=== PATIENT | female | born 1935 | race Caucasian/White ===

== ENCOUNTER 2025-02-01 07:54 | Day surgery (SDC) | payer MEDICARE, BC, MEDICAID ==
[~2025-02-01] VITALS: Ht 162.6 cm; Wt 70.4 kg
[2025-02-01] MEDS ORDERED: BUSP10TA3 PO (08:18)
[2025-02-01] MEDS ORDERED: WARF5TAB9 PO (08:18)
[2025-02-01] MEDS ORDERED: WARF-55 PO (08:18)
[2025-02-01] MEDS ORDERED: VENL150C58 PO (08:18)
[2025-02-01] MEDS ORDERED: DILT-94 PO (08:18)
[2025-02-01] MEDS ORDERED: OMEP20CA16 PO (08:18)
[2025-02-01 08:40] VITALS: BP 142/75; PULSE 132; RESP 17
[2025-02-01] MEDS ORDERED: propofol 10mg/ml 20ml vial IV ONE (09:17)
[2025-02-01 09:40] VITALS: BP 135/82; PULSE 114; RESP 21; O2SAT 99
[2025-02-01 09:50] VITALS: BP 133/66; PULSE 110; RESP 20; O2SAT 97
[2025-02-01 10:00] VITALS: BP 137/74; PULSE 118; RESP 21; O2SAT 97
[2025-02-01 10:10] VITALS: BP 138/80; PULSE 111; RESP 15; O2SAT 97
== END 2025-02-01 10:30 | disposition home or self-care (01) ==
LOC: GI LAB 07:54
PROVIDERS: ATTEND Internal Medicine Gastroenterology
DX: R13.10 Dysphagia, unspecified (principal); K44.9 Diaphragmatic hernia without obstruction or gangrene; K31.7 Polyp of stomach and duodenum; K31.89 Other diseases of stomach and duodenum; G47.30 Sleep apnea, unspecified; I48.91 Unspecified atrial fibrillation; Z88.6 Allergy status to analgesic agent; Z79.899 Other long term (current) drug therapy; Z98.890 Other specified postprocedural states; Z87.01 Personal history of pneumonia (recurrent)
CPT/HCPCS: 43239; A4620; J2704; J7030; Z7512; 88108; 88305; 88312